=== PATIENT | female | born 1965 | race Caucasian/White ===

== ENCOUNTER 2018-08-27 19:20 | Emergency (ER) | payer BC ==
[~2018-08-27] VITALS: Ht 157.5 cm; Wt 52.9 kg
--- NOTE | 2018-08-27 19:44 | REPVR ---
EXAM: CT Head Without Contrast EXAM DATE/TIME: 08/27/2018 7:38 PM CLINICAL HISTORY: 53 years old, female; Signs and symptoms; Speech disturbance and walking, difficulty and weakness, facial; Additional info: CVA - nursing interventions must not delay CT TECHNIQUE: Axial computed tomography images of the head/brain without contrast. All CT scans at this facility use at least one of these dose optimization techniques: automated exposure control; mA and/or kV adjustment per patient size (includes targeted exams where dose is matched to clinical indication); or iterative reconstruction. COMPARISON: No relevant prior studies available. FINDINGS: Complex right hemispheric mass which may be intraventricular is present, with cystic and solid components. It measures roughly 6 cm AP and 4 cm transverse with adjacent vasogenic edema and there is right to left midline shift measuring 10 mm at the septum pellucidum level. Dilatation of the right lateral ventricle indicates partial obstruction. Third and fourth ventricles are decompressed. No calvarial fracture or abnormal paranasal sinus opacification IMPRESSION: Complex right hemispheric brain mass which may be intraventricular in origin measuring 6 x 4 cm with marked adjacent vasogenic edema and 10 mm right to left midline shift with trapping and dilatation of the right lateral ventricle Electronically signed by: Costa Murphy On 08/27/2018 19:43:57 PM
[2018-08-27 19:58] LABS: BASO # 0.1 10^3/uL (0.0-0.2); BASO % 0.7 % (0.0-1.0); EOS % 0.4 % (0.0-3.0); HEMATOCRIT 43.1 % (36.0-47.0); HEMOGLOBIN 14.6 g/dl (12.0-15.5); LYMPH # 2.2 10^3/uL (1.5-4.5); LYMPH % 29.8 % (24.0-44.0); MEAN CORPUSCULAR HEMOGLOBIN 30.9 pg (27.0-33.0); MEAN CORPUSCULAR HGB CONC 33.9 g/dl (32.0-36.5); MEAN CORPUSCULAR VOLUME 91.3 fl (80.0-96.0); MONO # 0.8 10^3/uL (0.0-0.8); NEUTROPHILS # 4.3 10^3/uL (1.8-7.7); NEUTROPHILS % 57.8 % (36.0-66.0); PLATELET COUNT, AUTOMATED 284 10^3/uL (150-450); RED BLOOD COUNT 4.72 10^6/uL (4.00-5.40); WHITE BLOOD COUNT 7.5 10^3/uL (4.0-10.0)
[2018-08-27] MEDS ORDERED: dexameTHASONE 20 MG/5 ML VIAL (J1100) IV ONE (20:00)
--- NOTE | 2018-08-27 20:11 | REP ---
AP PORTABLE CHEST: 08/27/2018. Clinical history: CVA. Findings: No prior study. Lung forrester are well inflated. There is no effusion, infiltrate, atelectasis or mass. The heart, mediastinal and hilar contours are normal. Aorta and airway intact. No vascular redistribution or pulmonary edema. Bony thorax shows no focal lesion. No free air under the diaphragm. Impression: 1. No acute cardiopulmonary disease. Electronically Signed by Adalberto Roth MD 08/27/2018 09:34 P
[2018-08-27 20:13] LABS: INR 0.93; PROTHROMBIN TIME 12.6 SECONDS (12.1-14.4)
[2018-08-27 20:14] LABS: PARTIAL THROMBOPLASTIN TIME 29.1 SECONDS (25.4-37.6)
[2018-08-27 20:18] LABS: BLOOD UREA NITROGEN 10 MG/DL (7-18); CALCIUM LEVEL 8.8 MG/DL (8.5-10.1); CARBON DIOXIDE LEVEL 29 MEQ/L (21-32); CHLORIDE LEVEL 104 MEQ/L (98-107); CK-MB VALUE MASS < 1.0 NG/ML (<3.6); CPK CREATINE PHOSPHOKINASE 65 U/L (26-192); CREATININE FOR GFR 0.83 MG/DL (0.55-1.30); GLOMERULAR FILTRATION RATE > 60.0 (>51); GLUCOSE, FASTING 102 MG/DL (70-100); MB/CK RELATIVE INDEX 1.54 (< OR =4); POTASSIUM SERUM 3.7 MEQ/L (3.5-5.1); SODIUM LEVEL 138 MEQ/L (136-145); TROPONIN I < 0.02 NG/ML (< 0.10)
[2018-08-28 00:36] VITALS: BP 112/61
--- NOTE | 2018-08-28 08:12 | ECGEPIP ---
Stationary ECG Study [facility] - ED Test Date: 2018-08-27 Pat Name: OSWALD COHN Department: Room: - Gender: F Viscose Department Worker: LAURA : 1965 Requested By: JOEY Valderrama Order Number: [id number] Reading MD: Ady Avila Measurements Intervals Dema Rate: 110 P: 63 IN: 131 QRS: 79 QRSD: 90 T: -3 QT: 311 QTc: 421 Interpretive Statements SINUS TACHYCARDIA NONSPECIFIC ST & T-WAVE ABNORMALITY NO PRIORS FOR COMPARISON Electronically Signed On 08-28-2018 8:12:39 EST by Ady Avila
== END 2018-08-28 00:39 | disposition short-term general hospital (02) ==
LOC: M ED 19:20
DX: G93.89 Other specified disorders of brain (principal); F17.210 Nicotine dependence, cigarettes, uncomplicated
CPT/HCPCS: 70450; 71045; 80048; 82550; 82553; 84484; 85025; 85610; 85730; 86850; 86900; 86901; 93005; 93041; 94760; 96374; 99285; J1100